=== PATIENT | male | born 1980 | race Hispanic/Latino ===

== ENCOUNTER 2021-09-20 13:30 | Emergency (ER) | payer OTHER ==
[~2021-09-20] VITALS: Ht 165.1 cm; Wt 81.6 kg
[2021-09-20] MEDS ORDERED: CEPHALEXIN500 M1 PO (15:52)
[2021-09-20 15:57] VITALS: BP 139/85
== END 2021-09-20 15:57 | disposition home or self-care (01) | DRG 156 ==
LOC: ED 13:30
PROC: 0HQ1XZZ Repair Face Skin, External Approach (ICD-10-PCS; principal; 2021-09-20)
DX: S01.21XA Laceration without foreign body of nose, initial encounter (principal); W18.49XA Other slipping, tripping and stumbling without falling, initial encounter; Y93.89 Activity, other specified; Y92.74 Orchard as the place of occurrence of the external cause; Y99.0 Civilian activity done for income or pay

== ENCOUNTER 2022-02-04 08:29 | Emergency (ER) | payer SELFPAY ==
[~2022-02-04] VITALS: Ht 165.1 cm; Wt 79.3 kg
[~2022-02-04 08:29] MED LIST: CEPHALEXIN500 M1 PO
[2022-02-04 08:35] VITALS: BP 131/80
[2022-02-04 09:00] VITALS: BP 127/77
[2022-02-04 09:30] VITALS: BP 119/74
[2022-02-04] MEDS ORDERED: HYDROCO/APAP1 TA9 PO (09:51)
[2022-02-04 10:00] VITALS: BP 114/77
[2022-02-04 10:06] VITALS: BP 114/77
== END 2022-02-04 10:10 | disposition home or self-care (01) | DRG 563 ==
LOC: ED 08:29
PROC: 2W3CX1Z Immobilization of Right Lower Arm using Splint (ICD-10-PCS; principal; 2022-02-04)
DX: S52.501A Unspecified fracture of the lower end of right radius, initial encounter for closed fracture (principal); W11.XXXA Fall on and from ladder, initial encounter; Y92.009 Unspecified place in unspecified non-institutional (private) residence as the place of occurrence of the external cause